=== PATIENT | male | born 2000 | race Caucasian/White ===

== ENCOUNTER 2019-01-18 08:31 | Emergency (ER) | payer OTHER ==
[2019-01-18] MEDS: LIDOCAINE 1% (MDV) 20 ML INJ INJ (09:00)
[2019-01-18] MEDS: SOD CHLORIDE 0.9% 1,000 ML IV (09:06)
[2019-01-18 09:07] LABS: ADD MAN DIFF? NO
[2019-01-18] MEDS: LIDOCAINE 4% CR TOP (09:07)
[2019-01-18] MEDS: ACETAMINOPHEN 325 MG TAB PO (09:07)
[2019-01-18] MEDS: ONDANSETRON 4 MG INJ IV (09:07)
[2019-01-18 09:08] LABS: BASOPHILS % 0.4 % (0.0-2.0); EOSINOPHILS # 0.3 10^3/ul (0.0-0.5); HEMATOCRIT 46.4 % (42.0-52.0); HEMOGLOBIN 15.8 g/dl (14.0-18.0); LYMPHOCYTES # 1.9 10^3/ul (0.8-2.9); LYMPHOCYTES % 21.5 % (18.0-55.0); MEAN CORPUSCULAR HEMOGLOBIN 29.2 pg (29.0-33.0); MEAN CORPUSCULAR HGB CONC 34.1 g/dl (32.0-37.0); MEAN CORPUSCULAR VOLUME 85.8 fl (72.0-104.0); MEAN PLATELET VOLUME 8.7 fl (7.4-10.4); MONOCYTE # 0.7 10^3/ul (0.3-0.9); MONOCYTES % 7.5 % (0.0-13.0); NEUTROPHILS % 67.2 % (30.0-74.0); PLATELET COUNT 235 10^3/UL (140-415); RED BLOOD COUNT 5.41 10^6/ul (4.70-6.10); RED CELL DISTRIBUTION WIDTH 11.9 % (11.5-14.5)
[2019-01-18] MEDS: LEVETIRACETAM 1000 MG (PMX) 100 ML IVPB (09:14)
[2019-01-18 10:01] LABS: ANION GAP 9 (5-13); BLOOD UREA NITROGEN 16 mg/dl (7-20); CALCIUM 9.9 mg/dl (8.4-10.2); CARBON DIOXIDE 28 mmol/L (21-31); CHLORIDE 104 mmol/L (97-110); CREATININE 1.09 mg/dl (0.61-1.24); Estimated GFR > 60 mL/min (>60); GLUCOSE 101 mg/dl (70-220); POTASSIUM 4.1 mmol/L (3.5-5.1); SODIUM 141 mmol/L (135-144)
[2019-01-18 10:03] LABS: ETHANOL < 10.0 mg/dl (0-0)
== END 2019-01-18 10:48 | disposition home or self-care (01) ==
LOC: E/R 08:31
DX: S01.111A Laceration without foreign body of right eyelid and periocular area, initial encounter (principal); G40.909 Epilepsy, unspecified, not intractable, without status epilepticus; R40.2142 Coma scale, eyes open, spontaneous, at arrival to emergency department; R40.2362 Coma scale, best motor response, obeys commands, at arrival to emergency department; R40.2252 Coma scale, best verbal response, oriented, at arrival to emergency department; X58.XXXA Exposure to other specified factors, initial encounter; Y92.9 Unspecified place or not applicable
CPT/HCPCS: 12011; 36415; 70450; 70486; 80048; 80307; 85025; 93005; 96374; 99285-25